=== PATIENT | male | born 1940 | race Caucasian/White ===

== ENCOUNTER → 2024-06-22 10:10 | Outpatient (REF) | payer MEDICARE, SELFPAY | LOC: HWRCS 10:10 | PROVIDERS: ATTENDING PHYSICIAN Student in an Organized Health Care Education/Training Program | DX: R01.1 Cardiac murmur, unspecified (principal) | CPT/HCPCS: 93306 ==

== ENCOUNTER → 2024-12-04 08:15 | Outpatient (REF) | payer MEDICARE, SELFPAY | LOC: MRI 08:15 | PROVIDERS: ATTENDING PHYSICIAN Student in an Organized Health Care Education/Training Program | DX: R26.9 Unspecified abnormalities of gait and mobility (principal); G56.00 Carpal tunnel syndrome, unspecified upper limb | CPT/HCPCS: 70551 ==

== ENCOUNTER 2024-12-19 16:55 | Inpatient (IN) | payer MEDICARE, SELFPAY ==
[2024-12-19] VITALS (9 sets, daily range): BP systolic 130–167; BP diastolic 71–92; BMI 25.9; BMI 24.9
--- NOTE | 2024-12-19 10:40 | ED.GENMED ---
History of Present Illness
<CARLOS Morocho - Last Filed: 12/19/24 13:54>
General
Chief Complaint: Chest Pain
Source: patient
Exam Limitations: none
Time Seen by Provider: 12/19/24 10:38
Nursing documentation reviewed up to this point in time: agreed with
History of Present Illness
History of Present Illness:
84-year-old male presents to the ER for evaluation of chest pain. Patient was walking into a store around 9 AM and felt sudden pain across his chest became sweaty and felt getting a pass out. He had no radiation of symptoms he denied any shortness
of breath. He sat in his car. He reports pain is just about resolved. He was given 2 full-strength aspirins and took a total of 650 mg of aspirin. He has no history of CAD he does report history of aortic valve issues had an echo from a
director housekeeping at [facility] recently, DR Schaffer.
Phy Exam
<CARLOS Morocho - Last Filed: 12/19/24 13:54>
General Physical Exam
General Presentation: no apparent distress
General age: appears stated age
General Skin: warm and dry
General Habitus: elderly
General Mental: alert
General Hydration: appears well hydrated
Cardiovascular Exam
Cardiovascular Exam: regular rate/rhythm, normal peripheral pulses and systolic murmur
Pulmonary Exam
Pulmonary Exam: lungs clear and no respiratory distress
Neurological Exam
Neurological Exam: alert and oriented x3
Scores
<CARLOS Morocho - Last Filed: 12/19/24 13:54>
Heart Score for Chest Pain Patients
STEMI patient?: Not applicable
Course
<CARLOS Morocho - Last Filed: 12/19/24 13:54>
Orders/Labs/Results
Orders:
Orders
12/19/24 10:24
Electrocardiogram (*1) Urgent
Reason for Study: Chest Pain
EKG- Treatment ONCE
12/19/24 10:52
IV Insert/Care/Rem.- Treatment PRN
12/19/24 10:53
Cardiac Monitoring- Treatment ONCE
CR Chest - 2 Views Urgent
Comment:
Reason For Exam: cp
12/19/24 11:04
Complete Blood Count/With Diff Urgent
Comprehensive Metabolic Panel Urgent
TSH Reflex To Free T4 Urgent
Troponin I Urgent
12/19/24 12:49
CARDIOLOGY CONSULT Routine
Consulting Provider: Collin Barboza
Was physician already notified: Yes
12/19/24 13:13
Admit/Transfer Patient As Directed
Co-Sign Provider:
Level of Care: Observation services
Assign to:: Telemetry
Physician / Group: Clay
Diagnosis: Chest Pain
Reason for Telemetry: Chest Pain syndromes
Date to Stop Telemetry: 12/21/24
Time to Stop Telemetry: 11:00
PRN Pain Medication Management As Directed
May give lesser potent ordered pain med per pt: Yes
preference::
Protocol:: Medication orders for pain may be administered in a
manner that supports deferring to patient preference
when the pt is:
- Requesting an ordered lesser potent pain medication.
Least to most potent pain medications are defined
as: acetaminophen < NSAID < tramadol < opioids
(morphine, oxycodone, hydromorphone).
- Requesting a lesser dose of the same medication IF
ORDERED.
- Requesting a less intrusive route of administration
if both routes are prescribed by the provider (PO <
IV).
12/19/24 13:14
Code Status As Directed
Resuscitation Status: Full Code
12/19/24 13:25
Add On- LAB Urgent
Tests Added?: TSH w/Reflex
12/19/24 14:00
Troponin I Q6H
12/19/24 20:00
Troponin I Q6H
12/20/24 02:00
Troponin I Q6H
12/21/24 11:00
DC Protocol for Telemetry ONCE
Abnormal Lab Results
12/19/24
11:04
RBC 3.66 L 10^6/uL
(4.70-6.10)
Hgb 11.6 L g/dL
(13.0-18.0)
Hct 35.1 L %
(39.0-52.0)
MCV 95.9 H fL
(80.0-94.0)
MCH 31.7 H pg
(27.0-31.0)
MPV 10.5 H fL
(7.4-10.4)
Absolute Lymphs (auto) 1.0 L 10^3/uL
(1.2-3.4)
Absolute Monos (auto) 1.0 H 10^3/uL
(0.1-0.6)
Lymphocytes % 15.2 L %
(20.5-51.1)
Monocytes % 14.7 H %
(1.7-9.3)
BUN 23 H mg/dl
(9-20)
12/19/24 11:04
12/19/24 11:04
Vital Signs
Initial and Last Documented VS:
Initial Vital Signs
Temp Pulse Resp BP Pulse Ox
97.8 F 49 18 130/83 96
12/19/24 10:27 12/19/24 10:27 12/19/24 10:27 12/19/24 10:12/19/24 10:27
Last Documented Vital Signs
Temp Pulse Resp BP Pulse Ox
97.8 F 58 22 167/88 96
12/19/24 10:27 12/19/24 11:45 12/19/24 11:45 12/19/24 11:00 12/19/24 12:00
Private Banker consulted with Physician
Private Banker consulted with physician?: Yes
Name of Physician Consulted: Noel
<Kaden Cohen MD - Last Filed: 12/19/24 13:59>
Orders/Labs/Results
Orders:
Orders
12/19/24 10:24
Electrocardiogram (*1) Urgent
Reason for Study: Chest Pain
EKG- Treatment ONCE
12/19/24 10:52
IV Insert/Care/Rem.- Treatment PRN
12/19/24 10:53
Cardiac Monitoring- Treatment ONCE
CR Chest - 2 Views Urgent
Comment:
Reason For Exam: cp
12/19/24 11:04
Complete Blood Count/With Diff Urgent
Comprehensive Metabolic Panel Urgent
TSH Reflex To Free T4 Urgent
Troponin I Urgent
12/19/24 12:49
CARDIOLOGY CONSULT Routine
Consulting Provider: Collin Barboza
Was physician already notified: Yes
12/19/24 13:13
Admit/Transfer Patient As Directed
Co-Sign Provider:
Level of Care: Observation services
Assign to:: Telemetry
Physician / Group: Clay
Diagnosis: Chest Pain
Reason for Telemetry: Chest Pain syndromes
Date to Stop Telemetry: 12/21/24
Time to Stop Telemetry: 11:00
PRN Pain Medication Management As Directed
May give lesser potent ordered pain med per pt: Yes
preference::
Protocol:: Medication orders for pain may be administered in a
manner that supports deferring to patient preference
when the pt is:
- Requesting an ordered lesser potent pain medication.
Least to most potent pain medications are defined
as: acetaminophen < NSAID < tramadol < opioids
(morphine, oxycodone, hydromorphone).
- Requesting a lesser dose of the same medication IF
ORDERED.
- Requesting a less intrusive route of administration
if both routes are prescribed by the provider (PO <
IV).
12/19/24 13:14
Code Status As Directed
Resuscitation Status: Full Code
12/19/24 13:25
Add On- LAB Urgent
Tests Added?: TSH w/Reflex
12/19/24 14:00
Troponin I Q6H
12/19/24 20:00
Troponin I Q6H
12/20/24 02:00
Troponin I Q6H
12/21/24 11:00
DC Protocol for Telemetry ONCE
Abnormal Lab Results
12/19/24
11:04
RBC 3.66 L 10^6/uL
(4.70-6.10)
Hgb 11.6 L g/dL
(13.0-18.0)
Hct 35.1 L %
(39.0-52.0)
MCV 95.9 H fL
(80.0-94.0)
MCH 31.7 H pg
(27.0-31.0)
MPV 10.5 H fL
(7.4-10.4)
Absolute Lymphs (auto) 1.0 L 10^3/uL
(1.2-3.4)
Absolute Monos (auto) 1.0 H 10^3/uL
(0.1-0.6)
Lymphocytes % 15.2 L %
(20.5-51.1)
Monocytes % 14.7 H %
(1.7-9.3)
BUN 23 H mg/dl
(9-20)
12/19/24 11:04
12/19/24 11:04
Vital Signs
Initial and Last Documented VS:
Initial Vital Signs
Temp Pulse Resp BP Pulse Ox
97.8 F 49 18 130/83 96
12/19/24 10:27 12/19/24 10:27 12/19/24 10:27 12/19/24 10:27 12/19/24 10:27
Last Documented Vital Signs
Temp Pulse Resp BP Pulse Ox
97.8 F 58 22 167/88 96
12/19/24 10:27 12/19/24 11:45 12/19/24 11:45 12/19/24 11:00 12/19/24 12:00
<CARLOS Morocho - Last Filed: 12/19/24 13:54>
MDM/Problems Addressed
Differential Diagnosis Includes:
Not limited to ACS, near syncopal episode
MDM/Problems Addressed:
As documented patient is an 84-year-old male with past medical history of aortic stenosis followed by cardiology at [facility] Dr. Schaffer presents to the ER for exertional chest pain/near syncopal episode while walking to his car. Patient
reported his pain was resolving on arrival. No prior EKG however there is T wave inversions and nonspecific ST changes. I am attempting to get EKG from [facility]. His first cardiac troponin is 0.018 with chest pain and near syncope would
recommend admission. Patient was eval by Dr. Cohen. Will need second troponin as well no acute chest x-ray findings.
Chronic conditions affecting care:
Aortic stenosis
<CARLOS Morocho - Last Filed: 12/19/24 13:54>
*Radiology
Radiology exam reviewed: radiology read reviewed
*Pulse Oximetry
SaO2: 96
Oxygen Mode of Delivery: Room air
Patient hypoxic: no
*EKG
Interpreted by ED Provider?: Yes
Interpretation: abnormal
Comparison EKG: no comparison EKG present
Heart Rate: 51
Rate: bradycardiac
Rhythm: sinus
Ischemia: non-specific ST changes
*Critical Care Note
Total Time (30-74mins, 75-104mins- exclusive of procedures): Not Applicable
ED Attending Note
<CARLOS Morocho - Last Filed: 12/19/24 13:54>
-
Portions of this chart may have been created with voice recognition software.� Occasional wrong word or��sound alike� substitutions may have occurred due to the inherent limitations of voice recognition software.
<Kaden Cohen MD - Last Filed: 12/19/24 13:59>
ED Attending Note
Patient seen and examined by attending physician: Yes
I performed the substantive portion of visit, reviewed & personally made and approve the management plan that is documented in note by myself or ROMEL.: Yes
ED Attending Note:
84-year-old male presents with 1 hour of somewhat exertional chest tightness near syncope diaphoresis and nausea. Currently resolved. No history of same. History of aortic stenosis.
On exam patient is nontoxic in no distress. Lungs are clear and equal. Heart regular rate and rhythm with midsystolic murmur. Abdomen is nontender. Warm and dry. Perfusing well.
Initial troponin stable. EKG has diffuse T wave inversions. No previous EKG.
Symptom complex of exertional chest pain along with near syncope and aortic stenosis warrants further inpatient management. This is discussed with patient and family
Discharge Plan
Departure
Patient Disposition: Admit
Date of Disposition: 12/19/24
Time of Disposition: 12:13
Admit to: Telemetry
Admit to doctor: hospitalist
Presentation/result/management discussed w/ accepting MD/DO: Hospitalist
Patient with high blood pressure during this ER visit?: Yes
Condition: Fair
Covid-19: Not Applicable
Discharge Problem:
Chest pain, Near syncope
Interventions
Interventions:
*Risk Screen - Suicide Last Done: 12/19/24 10:27
*General Assessment Last Done: 12/19/24 10:27
*Neglect/Abuse Screening Last Done: 12/19/24 10:27
*ED- Fall Risk Assessment Last Done: 12/19/24 12:04
*ED COVID-19 Vaccine History Last Done: 12/19/24 12:04
ED- Cardiac Assessment Last Done: 12/19/24 10:30
[2024-12-19 11:19] LABS: Hematocrit 35.1 % (39.0-52.0); Hemoglobin 11.6 g/dL (13.0-18.0); Mean Corp Hgb Conc. 33.0 g/dL (33.0-37.0); Mean Corpuscular Volume 95.9 fL (80.0-94.0); Nucleated Red Blood Cells % 0 % (-); Platelet Count 185 10^3/uL (130-400); Red Cell Dist. Width 14.1 % (11.5-14.5)
[2024-12-19 11:30] LABS: ALT (SGPT) 13 U/L (0-50); AST (SGOT) 23 U/L (17-59); Albumin 4.1 g/dl (3.5-5.0); Alkaline Phosphatase 94 U/L (38-126); Blood Urea Nitrogen 23 mg/dl (9-20); Calcium 9.1 mg/dl (8.4-10.2); Carbon Dioxide 24 mmol/L (22-30); Chloride 106 mmol/L (98-107); Estimated Creatinine Clearance 50 ml/min; Glucose 97 mg/dl (70-99); Potassium 4.7 mmol/L (3.5-5.1); Sodium 137 mmol/L (135-145); Total Protein 7.0 g/dl (6.3-8.2); eGFR > 60.00
[2024-12-19 11:44] LABS: Troponin I 0.018 ng/ml
--- NOTE | 2024-12-19 12:25 | HPS.HSE ---
Addendum entered and electronically signed by Lien Williamson MD 12/19/24 20:06:
This is an addendum to H&P written by Jeny Saha on 12/19/2024. �Patient seen and examined independently with PA.
84-year-old male past medical history of moderate aortic stenosis BPH, macular degeneration, presenting with chest pain starting this morning associated sweating and presyncope. �Given 2 full-strength aspirin. �Chest pain nearly resolved.
Vitals unremarkable apart from sinus bradycardia.
EKG shows sinus bradycardia, LVH, T wave inversions in leads V3 to V6, ST elevations in leads V1 to V3. �Troponin 0.018. �Chest x-ray shows no acute cardiopulmonary process.
Labs show hemoglobin 11.6.
Presentation concerning for unstable angina/NSTEMI. ST elevations maybe secondary to repolarization.
Check A1c and lipid panel. �Continue aspirin. Heparin drip. Cardiology consulted and plan for cath tomorrow. NPO past midnight.
Original Note:
Family Physician
-
Family Physician: Bethany Latham MD, Reside
Chief Complaint
-
Chest Pain
History of Present Illness
Patient is an 84 y/o male past medical history of moderate aortic stenosis, BPH and GERD who presents with chest pain. Patient reports he was walking into an auto shop today when he developed left chest pain which describes as ache. He states it
was quite severe, and he needed to sit down as he felt like he was going to pass out. He reports associated diaphoresis but denies shortness of breath. He chewed two 325mg aspirin tablets and called EMS. He reports pain persisted until he got to
the emergency department. He reports mild residual pain but states that is is mostly resolved. He denies any similar episode inthe past. He denies any prior history of coronary artery disease or heart attack.
Medical History
Past Medical History
Past Medical History: Reports Other
Additional Past Medical History:
Moderate Aortic Stenosis
BPH
GERD
Insomnia
Past Surgical History: Reports Other
Additional Past Surgical History:
TURP
Cataracts
Social History
Tobacco: Non-smoker
Alcohol: Occasional
Family History
Family History: Not pertinent
Allergies / Home Medications
Allergies reflects when Allergies were last updated in [employer].
Home Medications with original date entered in [employer]
Allergy/Medication List:
Allergies
Allergy/AdvReac Type Severity Reaction Status Date / Time
silodosin (From Rapaflo) Allergy Severe Swelling Verified 12/19/24 10:26
tamsulosin (From Flomax) Allergy Unknown Verified 12/19/24 10:26
Home Medications
brimonidine 0.2 %-timolol 0.5 % eye drops (Combigan) 1 drp BOTH EYES BID 12/19/24
cyanocobalamin (vitamin B-12) 1,000 mcg tablet (Vitamin B-12) 1,000 mcg PO DAILY 12/19/24
dutasteride 0.5 mg capsule 0.5 mg PO DAILY 12/19/24
ketoconazole 2 % topical cream 1 applic topical BID rash on hands and foot 12/19/24
lutein 10 mg-zeaxanthin 10 mg capsule 1 cap PO DAILY 12/19/24
omeprazole 20 mg capsule,delayed release 20 mg PO DAILY 12/19/24
polyethylene glycol 3350 17 gram oral powder packet (Miralax) 8.5 g PO DAILY Constipation 12/19/24
zolpidem 5 mg tablet 5 mg PO HSPRN PRN insomnia 12/19/24
Review of Systems
-
A 12 point ROS was completed and negative except as noted: Yes
Constitutional: Denies Fever or Chills
Respiratory: Denies Cough or Trouble Breathing
Cardiac: Reports See HPI; Denies Palpitations
Physical Exam
Vital Signs
Vital Signs
Temp Pulse Resp BP Pulse Ox
97.8 F 58 22 167/88 96
12/19/24 10:27 12/19/24 11:45 12/19/24 11:45 12/19/24 11:00 12/19/24 12:00
Physical Exam
General: Comfortable and Conversant
HEENT: Anicteric and Moist mucous membranes
Respiratory: Clear and Non Labored Respirations
Cardiac: S1/S2, Regular Rhythm and Murmur (III/ Systolic)
GI: Soft and Non Tender
Rectal: Deferred by Provider
Musculoskeletal: No Clubbing, No Cyanosis and No Edema
Skin: Warm and Dry
Neuro: Awake, Alert, Oriented and Nonfocal/grossly intact
Psych: Calm and Intact Judgment/Insight
Laboratory Results
-
12/19/24 11:04
12/19/24 11:04
Laboratory Results
Total Bilirubin 0.6 mg/dl (0.2-1.3) 12/19/24 11:04
AST 23 U/L (17-59) 12/19/24 11:04
ALT 13 U/L (0-50) 12/19/24 11:04
Alkaline Phosphatase 94 U/L (38-126) 12/19/24 11:04
Troponin I 0.018 ng/ml 12/19/24 11:04
Data Reviewed
-
Lab Data: Labs Reviewed by me
Impression/Plan
-
Chest Pain, high clinical concern for cardiac in nature
-ECG changes are present with invert T waves noted in lateral lead but no prior available for comparison
-Initial troponin negative
-Consult Cardiology
-Continue to trend troponin - If elevated will start heparin drip
-Patient took Aspirin 650mg prior to arrival - Start Aspirin 81mg Daily
-Check HgbA1c and Lipid Panel
Sinus Bradycardia
-Patient does not take any rate slowing medications
-Monitor on Telemetry
-Check TSH
Moderate Aortic Stenosis
-Patient had echocardiogram yesterday - Attempt to obtain a copy
BPH
-Continue dutasteride
DVT proph: SCDs
Code Status: Full Code
--- NOTE | 2024-12-19 13:45 | CM ---
CM reviewed chart and met with pt bedside in ED. Lives with his in [place] suite at [facility].
Independent in ADLs, personal care and ambulation at baseline, uses RW or cane outside the home.
ORTIZ reviewed and signed.
No hx VN or SNF
PCP: Bethany Latham
Pharmacy: [address]
Anticipate discharge home, CM will continue to follow for any discharge planning needs.
--- NOTE | 2024-12-19 14:04 | CON.CAR ---
Addendum entered and electronically signed by Collin Barboza MD 12/19/24 16:43:
I saw and examined the patient.
The Hydroelectric Plant Technician's note was reviewed and I agree with the note.
Comment:
GEN: No distress, awake, Ox3
HEENT: supple, anicteric, mmm
LUNGS: CTA, no wheezes/rales
CV: Reg, S1/S2, 3/6 syst LSB, no gallop
ABD: soft, BS+, NT/ND
EXT: No edema
NEURO: Gross non-focal
SKIN: No rash
Plan:
84-year-old male with past medical history of aortic stenosis, MGUS, and GERD presents with an episode of chest discomfort today around 9:00. He was at his truck bench mechanic's office walking to his car we noticed a moderate left sided pain with some sweats
and shortness of breath. He also had some mild dizziness. He called 911 and took aspirin. The pain resolved by the time he arrived at the hospital. He has been followed at [facility] with [address] Felder there was concern about
his aortic valve possibly needing a TAVR. He currently is pain-free.
He presents with a likely non-STEMI versus progressive aortic valve disease. I had a lengthy discussion with him and his family.
Start aspirin, atorvastatin 40 mg daily, and lisinopril. He has some resting bradycardia with a left bundle branch block and first-degree AV block so we will hold off on beta-serg therapy for now.
We will repeat an echocardiogram in the a.m. and we will proceed with cardiac cath in a.m. I suspect he likely has significant coronary artery disease.
We discussed this could be a valve and he likely will need evaluation for TAVR pending the results of his echo and cath.
Trend troponins and check lipids. He currently is pain-free. Okay to continue IV heparin.
Original Note:
Consultation
Consultation Request
Date/Time Consultation Requested: 12/19/24 12:49
Date/Time Consultation Performed: 12/19/24 14:04
Requesting Provider: Jeny Sam PA-C
Performing Provider: Milind Thomas DO (Resident); Vivek Barboza MD
Reason for Consultation: Chest Pain
Medical History
-
Chief Complaint: Chest Pain
History of Present Illness:
Rg Ramirez is a 84M with a PMHx of moderate aortic stenosis who presented to the emergency department with chest pain. Patient states that he woke up in his usual state of health and went to the truck bench mechanic for some maintenance work on his car. Once
he arrived at around 9:15am, he started to notice some chest pain in the left upper chest that he describes as a sharpness. The pain continued but he went inside the shop to talk to the front maker lockstitch, and then started to feel some diaphoresis. At this
time he also started to experience some dizziness described as lightheadedness that prompted him to try to find a chair out of fear of falling. He couldn't find a chair indoors so he ventured outdoors to try go to sit down in the car, which he did.
During this episode the patient otherwise denies SOB, palpitations, pleurisy, radiation of pain to arms, jaw or back, headaches, or confusion. Once sitting down, called 911. He also took 325mg ASA x 2. EMS arrived and transported him to the
hospital. At onset of the pain, patient rates pain as 4/10, but by the time he arrived at the hospital it was a 0/10 and it was a 0/10 during this interview.
Notably, the patient had his first ECHO done in 05/2024 which showed EF 65%, mild MR, mild LAD, and moderate aortic stenosis. He was advised to establish care with waste treatment operator but had a hard time finding an appointment and eventually established
care with Dr. Jacinto at [facility] where a repeat ECHO was done which the patient was told would necessitate him getting a TAVR within the next 2 years. Otherwise, the patient denies any cardiac history or history of ACS/GA.
ED COURSE
HR 49 BP 130/83 on arrival
Hb 11.6, CBC otherwise unremarkable, BUN 23 Cr 1.0
Initial troponin 0.018, repeat 0.07
EKG: sinus bradycardia, left axis deviation, LVH with QRS widening, T wave abnormality, no prior EKG for comparison
Past Medical History
Past Medical History: Other (moderate aortic stenosis, gait abnormality, MGUS (stable), chronic prostatitis)
Past Surgical History: Urological (TURP (2023))
Social History
Tobacco: Non-Smoker
Alcohol: Occasional
Drug: None
Personal:
Living: With Family
Family History
Family History: Reviewed & Not Pertinent and Other (denies family history of heart disease or GA)
Allergies / Home Medications
Allergy/AdvReac Type Severity Reaction Status Date / Time
silodosin (From Rapaflo) Allergy Severe Swelling Verified 12/19/24 10:26
tamsulosin (From Flomax) Allergy Unknown Verified 12/19/24 10:26
�Medication �Instructions �Recorded �Confirmed �Type
brimonidine 0.2 %-timolol 0.5 % 1 drp BOTH EYES BID 12/19/24 12/19/24 History
eye drops (Combigan)
cyanocobalamin (vitamin B-12) 1,000 mcg PO DAILY 12/19/24 12/19/24 History
1,000 mcg tablet (Vitamin B-12)
dutasteride 0.5 mg capsule 0.5 mg PO DAILY 12/19/24 12/19/24 History
ketoconazole 2 % topical cream 1 applic topical BID rash on hands 12/19/24 12/19/24 History
and foot
lutein 10 mg-zeaxanthin 10 mg 1 cap PO DAILY 12/19/24 12/19/24 History
capsule
omeprazole 20 mg capsule,delayed 20 mg PO DAILY 12/19/24 12/19/24 History
release
polyethylene glycol 3350 17 gram 8.5 g PO DAILY Constipation 12/19/24 12/19/24 History
oral powder packet (Miralax)
zolpidem 5 mg tablet 5 mg PO HSPRN PRN insomnia 12/19/24 12/19/24 History
Review of Systems
-
History Source: Patient
All other systems: Negative unless noted
Physical Exam
Vital Signs
Temp Pulse Resp BP Pulse Ox
97.8 F 58 22 167/88 96
12/19/24 10:27 12/19/24 11:45 12/19/24 11:45 12/19/24 11:00 12/19/24 12:00
Lab Results
12/19/24 11:04
12/19/24 11:04
Troponin I 0.018 ng/ml 12/19/24 11:04
Physical Exam
General: No Apparent Distress, Comfortable and Other (ambulatory)
HEENT: Normocephalic
Respiratory: Clear and Non Labored Respirations; Negative Wheezes, Crackles or Rhonchi
Cardiac: S1/S2, Regular Rhythm and Murmur (3/6 systolic ejection murmur); Negative JVD
GI: Soft
Musculoskeletal: No Clubbing, No Cyanosis and No Edema
Skin: Warm
Neuro: Awake
Psych: Calm
Impression / Plan
-
Rg Ramirez is a 84 M with a PMHx of moderate aortic stenosis on echocardiogram (recently told he may need a TAVR in the near future) who presented for sharp left upper sternal chest pain without provocative or palliative factors and diaphoresis
that lasted approximately 1 hour. On arrival to the ED, pain had subsided s/p 650 mg ASA and EKG showed sinus bradycardia, LAD, LVH and T wave abnormalities without a prior EKG for comparison. Though initial troponin was negative, second troponin
now 0.07. Patient requires additional cardiovascular evaluation. Consider Type I NSTEMI vs. Type II NSTEMI in the setting of previously documented aortic stenosis.
- Serial troponins
- Start High Intensity Statin
- ASA 81 mg starting tomorrow (patient loaded with 325x2 at home today)
- Start ACEI
- Hold BB for now in the setting of sinus bradycardia
- Will repeat ECHO here
- Left Heart Cath in AM
- NPO after midnight
Data Reviewed
-
EKG: Tracing Personally Visualized and interpreted and Discussed with Patient
Radiology: Image Personally Visualized and interpreted, Report Reviewed by me and Discussed with Patient
Medical Tests (Nuc Med, Echo etc): Report Reviewed by me and Discussed with Patient
Labs: Labs Reviewed by me and Discussed with Patient
Old Records: Reviewed
Total Time Spent with Patient (in minutes): 45
[2024-12-19 15:13] LABS: Troponin I 0.074 ng/ml
[2024-12-19] MEDS: HEPARIN 4000 UNITS IV (16:28)
[2024-12-19] MEDS: HEPARIN 25000 UNITS/250 ML IV (16:33)
[2024-12-19 16:51] LABS: APTT 31.4 Sec (23.4-35.0)
[2024-12-19] MEDS: LIPITOR 40 MG PO (17:42)
[2024-12-19] MEDS: ZESTRIL 2.5 MG PO (17:42)
--- NOTE | 2024-12-19 18:09 | PTCARENOTE ---
Pt arrived to floor from ED via stretcher. Ambulated with assistance to floor bed. Pt arrived with brace on right knee, states its for osteoarthritis. Stating 0-1 pain in chest, dull ache. PTT drawn and sent. Heparin gtt started @ 900 units/hr per
order with 4000 unit IV bolus. Health history obtained with and son at bedside. Pt sent for ECHO.
[2024-12-19 20:43] LABS: Troponin I 0.139 ng/ml
[2024-12-19] MEDS: TIMOPTIC 0.5% OPHTHALMIC SOLUTION 1 DROP BOTH EYES (21:23)
[2024-12-19] MEDS: ALPHAGAN 0.2% EYE DROPS 1 DROP BOTH EYES (21:23)
[2024-12-19 23:01] LABS: APTT 87.4 Sec (23.4-35.0)
[2024-12-20] VITALS (17 sets, daily range): BP systolic 99–137; BP diastolic 63–87; BMI 24.1
[2024-12-20 03:13] LABS: Troponin I 0.176 ng/ml
[2024-12-20 05:02] LABS: APTT 82.5 Sec (23.4-35.0)
[2024-12-20 08:41] LABS: Hematocrit 34.7 % (39.0-52.0); Hemoglobin 11.5 g/dL (13.0-18.0); Mean Corp Hgb Conc. 33.1 g/dL (33.0-37.0); Mean Corpuscular Volume 95.3 fL (80.0-94.0); Platelet Count 160 10^3/uL (130-400); Red Cell Dist. Width 14.0 % (11.5-14.5)
[2024-12-20] MEDS: TIMOPTIC 0.5% OPHTHALMIC SOLUTION 1 DROP BOTH EYES ×2 (08:48→20:05)
[2024-12-20] MEDS: ALPHAGAN 0.2% EYE DROPS 1 DROP BOTH EYES ×2 (08:48→20:05)
[2024-12-20] MEDS: ZESTRIL 2.5 MG PO (08:49)
[2024-12-20] MEDS: PROTONIX 40 MG PO (08:50)
[2024-12-20] MEDS: PROSCAR 5 MG PO (08:50)
[2024-12-20] MEDS: LOW STRENGTH ASPIRIN 81 MG PO (08:50)
[2024-12-20 09:00] LABS: Blood Urea Nitrogen 20 mg/dl (9-20); Calcium 9.4 mg/dl (8.4-10.2); Carbon Dioxide 24 mmol/L (22-30); Chloride 109 mmol/L (98-107); Estimated Creatinine Clearance 55 ml/min; Glucose 87 mg/dl (70-99); HDL Cholesterol 41 mg/dl; LDL Cholesterol, Calculated 90 mg/dl; Magnesium 2.2 mg/dl (1.6-2.3); Potassium 4.2 mmol/L (3.5-5.1); Sodium 136 mmol/L (135-145); Very Low Density Lipoprotein 18 mg/dl (0-30); eGFR > 60.00
[2024-12-20 09:32] LABS: Troponin I 0.164 ng/ml
--- NOTE | 2024-12-20 10:01 | ITS.CL.CATH ---
Delivery Mgr - Catheterization
Cardiac Catheterization
Procedure Report:
LEFT HEART CATHETERIZATION
Date of Procedure: December 20, 2024
Referring: Vivek Olivares MD
PROCEDURES:
1. Left heart catheterization, coronary angiogram.
2. Moderate sedation.
INDICATION: Concern for NSTEMI
ACCESS: Right radial artery, 6Fr. sheath, under US guidance.
HEMODYNAMICS : (mmHg)
AO (s/d) : 124/67
LVEDP : 25
Transaortic gradient of 27 with aortic valve area 1.3 cm� consistent with moderate aortic stenosis.
CORONARY FINDINGS
Dominance: Right
Left Main Trunk (LMT): Large caliber vessel that gives rise to the LAD and LCx branches and is free of angiographic disease.
Left Anterior Descending Artery (LAD): Large caliber vessel that gives off 2 major diagonal branches as it courses along the anterior inter-ventricular groove before wrapping around the cardiac apex. The LAD is a heavily calcified vessel. There
is diffuse proximal to mid 70 to 75% stenosis spanning across both the diagonal branches. Ostial D1 has a 70% stenosis with 50% stenosis into the proximal portion. D2 has a 60 to 70% ostial stenosis.
Left Circumflex Artery (LCx): Large caliber vessel that gives off 2 major obtuse marginal (OM) branches as it courses along the atrio-ventricular (AV) groove. There is mild diffuse atherosclerotic plaque.
Right Coronary Artery (RCA): Large caliber dominant vessel that gives rise to the posterior descending artery (RPDA) and postero-lateral ventricular (RPLV) branches distally. There is mild to moderate diffuse atherosclerotic plaque within the RCA.
Ostial to proximal RPDA has a tubular heavily calcified 80% stenosis with GRECIA-3 flow into the distal vessel.
SEDATION: 37 minutes of procedural sedation was utilized. IV Midazolam and IV Fentanyl were administered. An independent bacteriologist medical was present to assist with and help manage the patient's level of consciousness and physiologic status.
Closure Device: There were no immediate intra-procedural complications. The sheath was pulled in the finishing lab technician and a vascular-band applied to the right wrist for radial artery hemostasis using the patent hemostasis technique.
CONCLUSIONS
1. Heavily calcified coronary arteries.
2. Ostial to proximal RPDA with heavily calcified tubular 80% stenosis.
3. The LAD is a heavily calcified vessel. There is diffuse proximal to mid 70 to 75% stenosis spanning across both the diagonal branches. Ostial D1 has a 70% stenosis with 50% stenosis into the proximal portion. D2 has a 60 to 70% ostial
stenosis. GRECIA-3 flow into the distal LAD and diagonal branches.
4. No obvious culprit for presenting ACS.
5. LVEDP elevated at 25 mmHg.
6. Transaortic gradient of 27mmHG with aortic valve area 1.3 cm� consistent with moderate aortic stenosis.
RECOMMENDATIONS
1. Wean radial band per protocol. Monitor right hand perfusion and for bleeding from the radial site following removal of the vascular-band following trans-radial access.
2. Continue aggressive medical therapy and risk factor modification for secondary CAD prevention.
3. Hydrate with normal saline to mitigate the risk of contrast-induced acute kidney injury.
4. IV diuresis as needed for an elevated LVEDP for symptomatic relief.
5. Ongoing surveillance of moderate aortic stenosis as an outpatient.
6. Referral for outpatient cardiac rehab.
Copy to: Vivek Olivares MD
Celi Salazar MD, [facility], [facility]
--- NOTE | 2024-12-20 11:55 | PTCARENOTE ---
Pt transferred to IVU post cath-lab. All pt belongings taken to room 2246.
--- NOTE | 2024-12-20 12:06 | PTCARENOTE ---
Received patient from the experimental machining lab manager at 1120 after R & LHC. Radial band in place right wrist. Fingers cool to touch but strong radial pulse. Tegaderm and edema noted distal to band, which cath nurse stated was oozing and tegaderm was placed. Right
groin dressing is dry and intact with a strong pedal pulse. Monitoring VS, reinforced post cath restrictions, call ruiz in reach. Family in now visiting and updated.
--- NOTE | 2024-12-20 12:59 | W.PN.HOSP.TC ---
Today's Communication/Plan
-
Monitor vital signs see plan
Cardiac cath
Continue with IV heparin, aspirin
Cardiology following
Assessment / Plan
Assessment / Plan
General: Comfortable and Conversant
HEENT: Anicteric and Moist mucous membranes
Respiratory: Clear and Non Labored Respirations
Cardiac: S1/S2, Regular Rhythm and Murmur (III/ Systolic)
GI: Soft and Non Tender
Musculoskeletal: No Edema
Neuro: Awake, Alert, Oriented and Nonfocal/grossly intact
Psych: Calm and Intact Judgment/Insight
NSTEMI
-ECG changes are present with invert T waves noted in lateral lead but no prior available for comparison
Trope peaked 0.17
Cardiology following, cardiac catheterization today
Aspirin, heparin drip
-Continue to trend troponin - If elevated will start heparin drip
A1c 5.2
Sinus Bradycardia
-Patient does not take any rate slowing medications
-Monitor on Telemetry
- TSH 2.2
Moderate Aortic Stenosis
Echo 12/19 with preserved EF 50 to 55%, stage I diastolic dysfunction, moderate aortic stenosis
BPH
-Continue dutasteride
DVT proph: SCDs
Code Status: Full Code
Anticipated Discharge: Within 24 hours
Subjective/Interval History
-
Date of Service: December 20, 2024
Denies chest pain
Objective Data
-
Labs:
Laboratory Results
12/20/24 12/20/24
04:37 07:53
WBC 6.3
Hgb 11.5 L
Hct 34.7 L
Plt Count 160
APTT 82.5 H
Sodium 136
Potassium 4.2
Chloride 109 H
Carbon Dioxide 24
BUN 20
Creatinine 0.9
Glucose 87
Calcium 9.4
Vital Signs:
Vital Signs
Temp Pulse Resp BP Pulse Ox
98.4 F 62 18 128/79 96
12/20/24 07:18 12/20/24 08:49 12/20/24 07:18 12/20/24 08:49 12/20/24 08:37
I&O
12/19/24 12/20/24 12/21/24
06:59 06:59 06:59
Intake Total 240 / 240
Output Total 450 / 450
Balance -210 / -210
[2024-12-20 13:19] LABS: Glycohemoglobin (HgbA1c) 5.2 % (4.0-5.6)
--- NOTE | 2024-12-20 17:08 | CM ---
Reviewed chart.. Mr. Ramirez was transferred to IVU. Met with Mr. Ramirez to review discharge plans. He states prior to admission he resides in an apartment in the independent living section of [facility]. He states he has been there since April. He
states prior to admission he is independent with ambulation in the apartment. He states he uses a single point cane when going places in the building bu jeff corley uses a rollator when going for a walk. He states he has a walker and single point cane at
home. He states he has prescription plan and uses [facility]. Will need to see his current functional level to see if he will have any skilled care needs. Medical work-up in progress. The discharge plan is to return to [facility] Independent
section with his spouse when medically stable.
[2024-12-20] MEDS: LIPITOR 40 MG PO (17:11)
[2024-12-20] MEDS: HEPARIN 25000 UNITS/250 ML IV (17:11)
[2024-12-20 23:30] LABS: APTT 58.7 Sec (23.4-35.0)
[2024-12-21] VITALS (8 sets, daily range): BP systolic 91–147; BP diastolic 61–92; BMI 24.4
--- NOTE | 2024-12-21 00:48 | PTCARENOTE ---
Pt AAOx3 and forgetful at times. Bed alarm active. Tele monitor shows SB-NSR w/ occasional PVCs. Pt denies any chest discomfort or SOB. Has an occasional MANA[employer] cough and sating 95% RA. Right radial/right groin dressings intact w/ palpable pulses.
Patient verbalizes understanding in regards to activity restrictions. Pt requires one assist and ambulates w/ RW to bathroom. Denies any dizziness. Pt refuses to void in urinal. IV Heparin gtt currently infusing at 1100 units/hr. Call ruiz within
reach, pt aware of POC.
[2024-12-21 06:18] LABS: Hematocrit 32.7 % (39.0-52.0); Hemoglobin 11.1 g/dL (13.0-18.0); Mean Corp Hgb Conc. 33.9 g/dL (33.0-37.0); Mean Corpuscular Volume 95.6 fL (80.0-94.0); Nucleated Red Blood Cells % 0 % (-); Platelet Count 157 10^3/uL (130-400); Red Cell Dist. Width 14.0 % (11.5-14.5)
[2024-12-21 06:21] LABS: APTT 100.1 Sec (23.4-35.0)
[2024-12-21 06:31] LABS: Blood Urea Nitrogen 19 mg/dl (9-20); Carbon Dioxide 24 mmol/L (22-30); Estimated Creatinine Clearance 50 ml/min; Glucose 91 mg/dl (70-99); eGFR > 60.00
[2024-12-21 06:43] LABS: Calcium 8.9 mg/dl (8.4-10.2); Chloride 109 mmol/L (98-107); Potassium 3.9 mmol/L (3.5-5.1); Sodium 136 mmol/L (135-145)
[2024-12-21] MEDS: TIMOPTIC 0.5% OPHTHALMIC SOLUTION 1 DROP BOTH EYES (08:49)
[2024-12-21] MEDS: LOW STRENGTH ASPIRIN 81 MG PO (08:49)
[2024-12-21] MEDS: ZESTRIL 2.5 MG PO (08:49)
[2024-12-21] MEDS: PROTONIX 40 MG PO (08:49)
[2024-12-21] MEDS: PROSCAR 5 MG PO (08:49)
[2024-12-21] MEDS: ALPHAGAN 0.2% EYE DROPS 1 DROP BOTH EYES (08:50)
--- NOTE | 2024-12-21 11:36 | PTCARENOTE ---
Heparin drip discontinued. Patient walked in halls with rolling walker. No chest pain or shortness of breath
--- NOTE | 2024-12-21 11:54 | W.PN.CARDCBS ---
Addendum entered and electronically signed by Collin Barboza MD 12/21/24 12:37:
I saw and examined the patient.
The Direct Care Provider's note was reviewed and I agree with the note.
Comment:
GEN: No distress, awake, Ox3
HEENT: supple, anicteric, mmm
LUNGS: CTA, no wheezes/rales
CV: Reg, S1/S2, 2/6 syst LSB, no gallop
ABD: soft, BS+, NT/ND
EXT: No edema
NEURO: Gross non-focal
SKIN: No rash
Plan:
Cath results reviewed with patient. Has moderate to severe coronary artery disease but with severe calcification will attempt to treat medically first.
Continue aspirin and atorvastatin Will stop lisinopril and add Norvasc 5 mg daily. If no further chest pains okay for discharge today.
I discussed with him that his aortic stenosis in the moderate range. This should be continued to be followed as he likely will eventually need TAVR.
I offered him follow-up here at [facility] or he can follow-up with his applied psychology chair at [facility]
Original Note:
Today's Communication / Plan
-
Continue aspirin, statin
Stop IV heparin
Stop lisinopril in favor of Norvasc 5 mg daily
Ambulate patient
Okay for discharge from cardiac standpoint later today if remains chest pain-free
Outpatient follow-up with [facility] cardiology
Impression / Plan
-
Rg Ramirez is a 84 M with a PMHx of moderate aortic stenosis on echocardiogram (recently told he may need a TAVR in the near future) who presented for sharp left upper sternal chest pain without provocative or palliative factors and diaphoresis
that lasted approximately 1 hour. On arrival to the ED, pain had subsided s/p 650 mg ASA and EKG showed sinus bradycardia, LAD, LVH and T wave abnormalities without a prior EKG for comparison. Though initial troponin was negative, second troponin
now 0.07. Patient requires additional cardiovascular evaluation. Consider Type I NSTEMI vs. Type II NSTEMI in the setting of previously documented aortic stenosis.
Primary Rail Setter: Dr. Schaffer [facility]
Assessment:
CP
Type 2 DE
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
Moderate
Sinus bradycardia
GERD
BPH
ECHO 12/19/24: EF 50 to 55%, moderate with peak/mean gradients 39/22 mmHg, OLESYA 1 cm�, mild MR
Plan:
- Patient presented with chest pain and had elevated troponin peaking at 0.17. Underwent cardiac catheterization 12/20 with no clear culprit vessel, however noted to have multivessel coronary disease. Also has moderate , so suspected type II DE.
- Will plan for medical therapy at this time.
- Continue aspirin.
- Will stop IV heparin and ambulate patient
- LDL 90. Started on high intensity statin this admission
- Lisinopril stopped in favor of Norvasc 5 mg daily for antianginal properties today.
- No beta-serg for now in the setting of sinus bradycardia
- LVEDP 25mmHg however no evidence of acute CHF. CXR without pulm edema or effusions. will have patient trend weights for now.
- Echo with results as above, preserved EF with moderate . Will need outpatient follow-up for continued monitoring
- Will follow-up with Dr. Schaffer of [facility]
- If ambulating without recurrent discomfort, okay for discharge to home today
- Discussed with nursing. Discussed with hospitalist via [employer] text
Progress Note - Rail Setter
Subjective
Date of Service: December 21, 2024
No issues overnight
Objective
Labs:
12/21/24 05:53
12/21/24 05:53
Labs
Hgb 11.1 g/dL (13.0-18.0) L 12/21/24 05:53
Hct 32.7 % (39.0-52.0) L 12/21/24 05:53
Plt Count 157 10^3/uL (130-400) 12/21/24 05:53
APTT Cancelled 12/21/24 06:00
Sodium 136 mmol/L (135-145) 12/21/24 05:53
Potassium 3.9 mmol/L (3.5-5.1) 12/21/24 05:53
BUN 19 mg/dl (9-20) 12/21/24 05:53
Creatinine 1.0 mg/dL (0.7-1.3) 12/21/24 05:53
Glucose 91 mg/dl (70-99) 12/21/24 05:53
Troponins
12/19/24 12/19/24 12/19/24
11:04 14:29 20:08
Troponin I 0.018 0.074 H* D 0.139 H* D
12/20/24 12/20/24 12/20/24
02:04 08:58 15:00
Troponin I 0.176 H* D 0.164 H* Cancelled
12/20/24
21:00
Troponin I Cancelled
Vital Signs and I&O:
Vital Signs
Temp Pulse Resp BP Pulse Ox
97.3 F 72 18 130/83 96
12/21/24 11:29 12/21/24 11:29 12/21/24 11:29 12/21/24 08:06 12/21/24 11:29
Vital Signs
Temp Pulse Resp BP Pulse Ox
97.3 F 72 18 130/83 96
12/21/24 11:29 12/21/24 11:29 12/21/24 11:29 12/21/24 08:06 12/21/24 11:29
Intake & Output
12/19/24 12/20/24 12/21/24 12/22/24
07:59 07:59 07:59 07:59
Intake Total 240 / 240 689 / 689
Output Total 450 / 450 125 / 125
Balance -210 / -210 / -125 / -125
Physical Exam
Physical Exam
GEN: No distress, awake, alert, oriented x3. Hearing aids in place
HEENT: supple, anicteric, mmm, EOMI
LUNGS: CTA bilaterally, no wheezes/rales
CV: Reg, S1/S2, 2/6 syst LSB
ABD: soft, BS+, NT/ND
EXT: No cyanosis, clubbing, edema
NEURO: Gross non-focal
SKIN: Warm, pink, dry. No rash. Right wrist site with mild ecchymoses, nontender to palpation
--- NOTE | 2024-12-21 13:11 | CM ---
Reviewed chart. Met with to review discharge plans. He states he feels well and maybe able to go home. We reviewed VNA Services and at this time he declines VNA Services. Prior to admission he resides in an apartment in the independent
living section of [facility]. He has been there since April. Prior to admission he is independent with ambulation in the apartment. He uses a single point cane when going places in the building but uses a rollator when going for a walk. He
states he has a walker and single point cane at home. He states he has prescription plan and uses [facility]. Will need to see his current functional level to see if he will have any skilled care needs. Medical work-up in progress. The
discharge plan is to return to [facility] Independent section with his spouse when medically stable.
--- NOTE | 2024-12-21 13:27 | PTCARENOTE ---
bladder scan 19 cc
[2024-12-21] MEDS: NORVASC 5 MG PO (14:15)
--- NOTE | 2024-12-21 14:43 | W.PN.HOSP.TC ---
Addendum entered and electronically signed by Robert Laura MD 12/21/24 15:50:
Suspect type II [place]
Addendum entered and electronically signed by Robert Laura MD 12/21/24 15:49:
Correction: Patient ambulated well and did not had any chest discomfort or shortness of breath. Will be discharged today
Time of discharge 37 minutes
Original Note:
Today's Communication/Plan
-
Monitor vitals
See plan
Continue with aspirin, statin
Continue Norvasc
Monitor symptoms
Assessment / Plan
Assessment / Plan
General: Comfortable and Conversant
HEENT: Anicteric and Moist mucous membranes
Respiratory: Clear and Non Labored Respirations
Cardiac: S1/S2, Regular Rhythm and Murmur (III/ Systolic)
GI: Soft and Non Tender
Musculoskeletal: No Edema
Neuro: Awake, Alert, Oriented and Nonfocal/grossly intact
Psych: Calm and Intact Judgment/Insight
NSTEMI
-ECG changes are present with invert T waves noted in lateral lead but no prior available for comparison
Trope peaked 0.17
Cardiology following, cardiac catheterization today
Continue aspirin, status post cardiac catheterization 12/20 with moderate to severe coronary artery disease with severe calcification. Treat medically per cardiology. Stop lisinopril and started Norvasc. Patient did ambulate and then started
developing some chest tightness and shortness of breath. Will continue to monitor. He also has aortic stenosis, moderate.
A1c 5.2
Sinus Bradycardia
-Patient does not take any rate slowing medications
-Monitor on Telemetry
- TSH 2.2
Moderate Aortic Stenosis
Echo 12/19 with preserved EF 50 to 55%, stage I diastolic dysfunction, moderate aortic stenosis
BPH
-Continue dutasteride
DVT proph: SCDs
Code Status: Full Code
Anticipated Discharge: Within 24 hours
Subjective/Interval History
-
Date of Service: December 21, 2024
Still having chest tightness and subjective shortness of breath at time
Objective Data
-
Labs:
Laboratory Results
12/21/24 12/21/24 12/21/24
05:53 06:00 11:55
WBC 7.5
Hgb 11.1 L
Hct 32.7 L
Plt Count 157
APTT 100.1 H Cancelled Pending
Sodium 136
Potassium 3.9
Chloride 109 H
Carbon Dioxide 24
BUN 19
Creatinine 1.0
Glucose 91
Calcium 8.9
Vital Signs:
Vital Signs
Temp Pulse Resp BP Pulse Ox
97.3 F 56 18 91/67 96
12/21/24 11:29 12/21/24 12:46 12/21/24 11:29 12/21/24 12:46 12/21/24 11:31
I&O
12/20/24 12/21/24 12/22/24
06:59 06:59 06:59
Intake Total 240 / 240 106 / 612
Output Total 450 / 450 125 / 125
Balance -210 / -210 44 / 529 -125 / -125
--- NOTE | 2024-12-21 15:09 | PN.CDI ---
CDI
- -
CDI:
Physician Documentation Request
Admit Date: 12/19/24 16:55
Dear Doctor Valentín,
Clinical Indicators:
Patient admitted with chest pain and elevated troponin.
12/20 Cardiac Cath Report, ' Heavily calcified coronary arteries....No obvious culprit for presenting ACS.'
12/21 Cardiology PN, 'Also has moderate , so suspected type II IN.'
12/21 PN, 'NSTEMI'
Due to potentially conflicting documentation, please clarify the etiology of the troponin elevation:
Type 2 IN
N STEMI (documentation complete)
Other,please specify
Use of terms such as suspected, likely, concern for, or probable (associated with a specific diagnosis that is being evaluated, monitored, or treated as if it exists) are acceptable and can be coded in the inpatient setting, when documented at the
time of discharge.
Thank you,
SEAN Tavares RN
CDI Specialist
available via tiger text
Please use your independent medical judgment in providing your response.
--- NOTE | 2024-12-21 15:53 | W.DCSUMMARY ---
Discharge Summary
Discharge Data
Date of Admission: 12/19/24
Date of Discharge: 12/21/24
-
Pending Results: No
Hospital Course
84-year-old male with past medical history of aortic stenosis, BPH, GERD came to the hospital with chest pain. Patient was seen by cardiology and was taken for cardiac catheterization which showed moderate to severe coronary artery disease with
severe calcification. Patient was recommended to be treated medically. Patient initially was on IV heparin which was weaned off. Instead of lisinopril he was then started on Norvasc. He also had moderate aortic stenosis. It appeared the patient
likely had type II AR. Once his symptoms continue to improve, he was then discharged home with instructions to follow-up with all his physicians outpatient.
Discharge Plan
-
Patient Disposition: Home (Routine Discharge)
Discharge Diagnosis/Procedures: Suspect type II AR status post cardiac cath
Moderate aortic stenosis
Moderate to severe coronary artery disease with severe calcification
Diet: 2 Gram Sodium
Activity: With assistance
Additional Activity: no heavy lifting greater than 10 pounds for 1 week!
Driving Restrictions: No driving for 24 hours
Specialty Instructions: Weigh Daily- Call MD for wt gain/loss 3 lbs overnight/5 lbs in 1 week
Stand Alone Forms: DC Instructions- Cath/EP Lab
Referrals:
Collin Barboza MD [Active, Cardiology]
Bethany Latham MD, Resident [Family Provider, General]
Piter Schaffer MD [Non-Admitting Privileges, Internal Medicine]
Referral Note: Dr. Schaffer's office will call you with an appointment in 2-4 week timeframe.
Prescriptions:
New
atorvastatin 40 mg Tablet
40 mg PO QPM Qty: 30 0RF
amlodipine 5 mg Tablet
5 mg PO DAILY Qty: 30 0RF
aspirin 81 mg Tablet,Chewable
81 mg PO DAILY Qty: 30 0RF
Continued
polyethylene glycol 3350 [Miralax] 17 gram Powder In Packet
8.5 g PO DAILY
cyanocobalamin (vitamin B-12) [Vitamin B-12] 1,000 mcg Tablet
1,000 mcg PO DAILY
omeprazole 20 mg capsule,delayed release(DR/EC)
20 mg PO DAILY
zolpidem 5 mg tablet
5 mg PO HSPRN PRN (Reason: insomnia)
ketoconazole 2 % cream
1 applic TOPICAL BID
dutasteride 0.5 mg capsule
0.5 mg PO DAILY
brimonidine-timolol [Combigan] 0.2-0.5 % Drops
1 drp BOTH EYES BID
lutein-zeaxanthin 10-10 mg Capsule
1 cap PO DAILY
Discharge Orders:
Discharge Patient (As Directed); Ordered 12/21/24
Ordered By: Robert Laura
Care Plan Goals
Care Plan Goals:
Problem: Readiness for enhanced knowledge related to diagnosis and treatment plan
Goal: Understand your diagnosis and treatment plan needs, including medications if applicable.
Instructions: Know your diagnosis, underlying causes and treatment plan options, including medications if applicable. Consult with your health care team to learn about your diagnosis and treatment plan, including medications if applicable.
Discharge Date and Time
Discharge Date/Time: 12/21/24 17:43
Print Language: MEXICAN
[2024-12-21] MEDS: PREVNAR 20 0.5 ML IM (16:08)
[2024-12-21] MEDS: LIPITOR 40 MG PO (16:11)
--- NOTE | 2024-12-21 17:34 | PTCARENOTE ---
Patient discharged to home. IV and telemetry removed. Teaching provided and patient verbalized understanding. Patient escorted to main lobby in a wheelchair
== END 2024-12-21 17:43 | disposition home or self-care (01) | DRG 282 ==
LOC: IVU 16:55
PROVIDERS: Internal Medicine Interventional Cardiology; Nurse Practitioner; Nurse Practitioner Adult Health; Physician Assistant Medical; ADMITTING PHYSICIAN Hospitalist; ATTENDING PHYSICIAN Internal Medicine; CONSULT PHYSICIAN Internal Medicine Cardiovascular Disease; EMERGENCY PHYSICIAN Emergency Medicine; FAMILY PHYSICIAN Student in an Organized Health Care Education/Training Program
PROC: B2111ZZ Fluoroscopy of Multiple Coronary Arteries using Low Osmolar Contrast (ICD-10-PCS; 2024-12-20)
PROC: 4A023N7 Measurement of Cardiac Sampling and Pressure, Left Heart, Percutaneous Approach (ICD-10-PCS; 2024-12-20)
DX: I25.10 Atherosclerotic heart disease of native coronary artery without angina pectoris (principal); I21.A1 Myocardial infarction type 2; I08.0 Rheumatic disorders of both mitral and aortic valves; N40.0 Benign prostatic hyperplasia without lower urinary tract symptoms; G47.00 Insomnia, unspecified; D47.2 Monoclonal gammopathy; I44.0 Atrioventricular block, first degree; I44.7 Left bundle-branch block, unspecified; K21.9 Gastro-esophageal reflux disease without esophagitis; N41.1 Chronic prostatitis; Z79.899 Other long term (current) drug therapy
CPT/HCPCS: 71046; 80048; 80053; 80061; 83036; 83735; 84443; 84484; 85025; 85027; 85730; 90677; 93005; 93306; 93460; 99152; 99153; 99285; C1769; C1894; G0009; Q9967